=== PATIENT | female | born 1995 | race Caucasian/White ===

== ENCOUNTER 2018-10-16 16:42 | Emergency (ER) | payer MEDICAID ==
[~2018-10-16] VITALS: Ht 165.1 cm; Wt 72.6 kg
[2018-10-16 17:06] VITALS: Ht 165.1 cm; Wt 72.6 kg
[2018-10-16 18:54] LABS: microscopic required? YES; urine erythrocyte 1+ (NEGATIVE)
[2018-10-16 20:22] VITALS: BP 121/88
== END 2018-10-16 20:23 | disposition home or self-care (01) ==
LOC: ED 16:42
PROVIDERS: Emergency Medicine
DX: N39.0 Urinary tract infection, site not specified (principal)
CPT/HCPCS: J1885

== ENCOUNTER 2019-06-24 00:32 | Emergency (ER) | payer SELFPAY ==
[~2019-06-24] VITALS: Ht 175.3 cm; Wt 72.6 kg
[2019-06-24 00:47] VITALS: Ht 175.3 cm; Wt 72.6 kg
[2019-06-24 03:04] LABS: UA SPECIFIC GRAVITY 1.015 (1.005-1.035); microscopic required? YES; urine erythrocyte NEGATIVE (NEGATIVE)
[2019-06-24 03:14] LABS: BASOPHIL % 0.3 % (0-2); PLATELET COUNT 270 x10^3mcL (130-400); RED CELL DISTRIBUTION WIDTH 13.5 % (11.5-14.5)
[2019-06-24 03:40] LABS: CALCIUM 9.4 mg/dL (8.5-10.1); CARBON DIOXIDE 28.3 mmol/L (21-32); CHLORIDE SERUM 103 mmol/L (98-107); CREATININE SERUM 0.7 mg/dL (0.6-1.0); GFR1 > 60 mL/min; GLUCOSE SERUM 88 mg/dL (74-106); POTASSIUM SERUM 3.5 mmol/L (3.5-5.1); SODIUM SERUM 145 mmol/L (136-145)
[2019-06-24 03:52] LABS: ALBUMIN 4.6 g/dL (3.4-5.0); ALKALINE PHOSPHATASE 67 U/L (46-116); ALT/SGPT 22 U/L (14-59); AST/SGOT 13 U/L (15-37); BILIRUBIN TOTAL 0.46 mg/dL (0.20-1.00); LIPASE 85 IU/L (73-393); TOTAL PROTEIN, SERUM 8.5 g/dL (6.4-8.2)
[2019-06-24 04:08] LABS: AMPHETAMINE QUAL UR NONE DETECTED (See below)
[2019-06-24 04:45] VITALS: BP 104/67
== END 2019-06-24 04:45 | disposition home or self-care (01) ==
LOC: ED 00:32
PROVIDERS: Emergency Medicine
DX: R55 Syncope and collapse (principal); N39.0 Urinary tract infection, site not specified; F12.90 Cannabis use, unspecified, uncomplicated; F10.99 Alcohol use, unspecified with unspecified alcohol-induced disorder
CPT/HCPCS: J2405; J3490; J7030

== ENCOUNTER 2020-02-13 14:19 | Emergency (ER) | payer SELFPAY ==
[~2020-02-13] VITALS: Ht 162.6 cm; Wt 70.3 kg
[2020-02-13 14:29] VITALS: Ht 162.6 cm; Wt 70.3 kg
[2020-02-13 14:57] LABS: BASOPHIL % 0.3 % (0-2); PLATELET COUNT 255 x10^3mcL (130-400); RED CELL DISTRIBUTION WIDTH 13.8 % (11.5-14.5)
[2020-02-13 15:07] LABS: CALCIUM 8.7 mg/dL (8.5-10.1); CARBON DIOXIDE 29.8 mmol/L (21-32); CHLORIDE SERUM 102 mmol/L (98-107); CREATININE SERUM 0.6 mg/dL (0.6-1.0); GFR1 > 60 mL/min; GLUCOSE SERUM 95 mg/dL (74-106); POTASSIUM SERUM 3.8 mmol/L (3.5-5.1); SODIUM SERUM 137 mmol/L (136-145)
[2020-02-13 15:12] LABS: ALBUMIN 3.9 g/dL (3.4-5.0); ALKALINE PHOSPHATASE 76 U/L (46-116); ALT/SGPT 35 U/L (14-59); AST/SGOT 22 U/L (15-37); BILIRUBIN TOTAL 0.6 mg/dL (0.20-1.00); TOTAL PROTEIN, SERUM 7.5 g/dL (6.4-8.2)
[2020-02-13 16:10] VITALS: BP 114/69
== END 2020-02-13 16:10 | disposition home or self-care (01) ==
LOC: ED 14:19
PROVIDERS: Emergency Medicine
DX: R42 Dizziness and giddiness (principal); N91.2 Amenorrhea, unspecified; F12.90 Cannabis use, unspecified, uncomplicated
CPT/HCPCS: 36415

== ENCOUNTER 2020-03-27 00:26 | Emergency (ER) | payer MEDICAID ==
[~2020-03-27] VITALS: Ht 162.6 cm; Wt 70.3 kg
[2020-03-27 00:28] VITALS: Ht 162.6 cm; Wt 70.3 kg
[2020-03-27 01:20] VITALS: BP 107/61
== END 2020-03-27 01:20 | disposition home or self-care (01) ==
LOC: ED 00:26
DX: R50.9 Fever, unspecified (principal); R51 Headache; F17.210 Nicotine dependence, cigarettes, uncomplicated; Z20.828 Contact with and (suspected) exposure to other viral communicable diseases

== ENCOUNTER 2020-04-13 09:22 | Emergency (ER) | payer MEDICAID, SELFPAY ==
[~2020-04-13] VITALS: Ht 162.6 cm; Wt 70.3 kg
[2020-04-13 09:27] VITALS: Ht 162.6 cm; Wt 70.3 kg
[2020-04-13 10:40] VITALS: BP 103/77
== END 2020-04-13 10:40 | disposition home or self-care (01) ==
LOC: ED 09:22
DX: J02.9 Acute pharyngitis, unspecified (principal)

== ENCOUNTER 2020-06-02 11:02 | Emergency (ER) | payer SELFPAY ==
[~2020-06-02] VITALS: Ht 165.1 cm; Wt 67.6 kg
[2020-06-02 11:11] VITALS: Ht 165.1 cm; Wt 67.6 kg
[2020-06-02 12:02] LABS: BASOPHIL % 0.3 % (0-2); PLATELET COUNT 222 x10^3mcL (130-400); RED CELL DISTRIBUTION WIDTH 13.4 % (11.5-14.5)
[2020-06-02 12:11] LABS: CALCIUM 8.4 mg/dL (8.5-10.1); CARBON DIOXIDE 23.7 mmol/L (21-32); CHLORIDE SERUM 100 mmol/L (98-107); CREATININE SERUM 0.7 mg/dL (0.6-1.0); GFR1 > 60 mL/min; GLUCOSE SERUM 113 mg/dL (74-106); SODIUM SERUM 135 mmol/L (136-145)
[2020-06-02 12:15] LABS: ALBUMIN 3.5 g/dL (3.4-5.0); ALKALINE PHOSPHATASE 93 U/L (46-116); ALT/SGPT 18 U/L (14-59); AST/SGOT 17 U/L (15-37); BILIRUBIN TOTAL 0.4 mg/dL (0.20-1.00); TOTAL PROTEIN, SERUM 8.1 g/dL (6.4-8.2)
[2020-06-02 12:21] LABS: UA SPECIFIC GRAVITY 1.015 (1.005-1.035); microscopic required? YES; urine erythrocyte NEGATIVE (NEGATIVE)
[2020-06-02 13:18] VITALS: BP 99/57
== END 2020-06-02 16:24 | disposition home or self-care (01) ==
LOC: ED 11:02
PROVIDERS: Emergency Medicine
DX: A41.89 Other specified sepsis (principal); D72.829 Elevated white blood cell count, unspecified; J02.9 Acute pharyngitis, unspecified
CPT/HCPCS: J1885; J7030; U0003-CS

== ENCOUNTER 2020-06-04 10:27 | Emergency (ER) | payer SELFPAY ==
[~2020-06-04] VITALS: Ht 165.1 cm; Wt 48.1 kg
[2020-06-04 10:36] VITALS: BP 122/73; Ht 165.1 cm; Wt 48.1 kg
== END 2020-06-04 13:18 | disposition home or self-care (01) ==
LOC: ED 10:27
DX: J03.90 Acute tonsillitis, unspecified (principal)